=== PATIENT | male | born 1950 | race Caucasian/White ===

== ENCOUNTER 2019-12-21 15:12 | Outpatient (CLI) | payer MEDICARE, SELFPAY ==
--- NOTE | ~2019-12-21 | US_ITS ---
EXAMINATION: US thyroid EXAM DATE: 12/21/2019 15:43 INDICATION: Abnormal blood work. TECHNIQUE: Multiple grayscale and Doppler images of the thyroid were obtained (by a technologist who performed the scan) and subsequently reviewed. Individual nodules may be reported using TI-RADS syst em as designated by the 2017 ACR White Paper TI-RADS committee. There is no prior study for comparis on. FINDINGS: Right thyroid lobe measures 4.8 x 2.5 x 1.3 cm, the left measuring 4.1 x 1.9 x 1.3 cm. The isthmus is 5 mm in thickness. Mildly heterogeneous thyroid echogenicity without focal nodule. Measurements are mildly enlarged. IMPRESSION: 1. Mild thyromegaly. Reviewed, dictated and finalized at location B. ET PRESIDENT IMPRESSION: 1. Mild thyromegaly.
== END 2019-12-21 15:13 | disposition home or self-care (01) ==
LOC: ANHIMG 15:15
PROVIDERS: PCP Internal Medicine; Visit Provider Internal Medicine
DX: E01.0 Iodine-deficiency related diffuse (endemic) goiter (principal)
CPT/HCPCS: 76536

== ENCOUNTER 2020-07-04 13:00 | Outpatient (RCR) | payer MEDICARE, SELFPAY ==
[2020-04-18 13:51] VITALS: BMI 27.7
[2020-07-04 13:01] VITALS: BMI 27.7
[2020-07-04 13:02] VITALS: BMI 27.7
== END 2020-07-17 23:59 | disposition home or self-care (01) ==
LOC: ANHDMC 13:00
DX: E10.9 Type 1 diabetes mellitus without complications (principal); Z71.3 Dietary counseling and surveillance; Z71.89 Other specified counseling
CPT/HCPCS: 97802; 97803; G0108

== ENCOUNTER 2020-10-20 09:00 | Outpatient (RCR) | payer MEDICARE, SELFPAY ==
[2020-09-19 12:57] VITALS: BMI 28.5
[2020-09-19 12:59] VITALS: BMI 28.5
== END 2020-11-06 15:58 | disposition home or self-care (01) ==
LOC: ANHDMC 09:00
PROVIDERS: Visit Provider Internal Medicine Endocrinology, Diabetes & Metabolism
DX: E10.9 Type 1 diabetes mellitus without complications (principal); Z71.89 Other specified counseling; Z71.3 Dietary counseling and surveillance
CPT/HCPCS: 97803; G0108

== ENCOUNTER 2020-12-01 09:42 | Outpatient (CLI) | payer MEDICARE, SELFPAY ==
--- NOTE | ~2020-12-01 | US_ITS ---
EXAMINATION: US right upper quadrant EXAM DATE: 12/01/2020 10:20 INDICATION: Abnormal liver function test . TECHNIQUE: Multiple grayscale and Doppler images of the abdomen right upper quadrant were obtained (b y a technologist who performed the scan) and subsequently reviewed. Comparison is made to prior exami nation from 10/09/2018. FINDINGS: The pancreatic head and body are normal in appearance. The pancreatic tail is not visualized. The l iver has normal echogenicity and contour. There are no focal liver lesions identified. There is no evidence of intrahepatic biliary duct dilation. Portal venous flow was seen in the hepatopedal, nor mal direction and has normal Doppler waveform. No right-sided hydronephrosis. Right renal cyst measu ring 3 cm. Common bile duct measures 6 mm, which is normal. The gallbladder wall is normal in thickness, with ex pected amount of distention. No sonographic evidence of pericholecystic fluid. There is no cholelit hiases. Technologist performing exam reports patient did not demonstrate sonographic Nicholas's sign. Please note that this sign is less reliable in patients who have received pain medication. IMPRESSION: Unremarkable abdominal ultrasound exam. Reviewed, dictated and finalized at location A. DISTRIBUTION SYSTEM OPERATOR
== END 2020-12-01 09:43 | disposition home or self-care (01) ==
LOC: ANHIMG 09:56
PROVIDERS: PCP Internal Medicine; Visit Provider Internal Medicine
DX: R94.5 Abnormal results of liver function studies (principal)
CPT/HCPCS: 76705

== ENCOUNTER → 2023-10-23 07:04 | Outpatient (CLI) | payer MEDICARE, SELFPAY ==
--- NOTE | ~2023-10-23 | MR_ITS ---
MRI of the thoracic spine Clinical History: Radiculopathy Technique: Axial T2-weighted and gradient images, and sagittal T1-weighted, T2-weighted, and STIR maikel ges were acquired. Findings: There is no fracture or subluxation of the thoracic spine. Vertebral bodies maintain normal height and alignment. No bone marrow signal abnormality seen. There are focal central disc protrusions at T6-T7 and T7-T8, resulting in mild flattening of the vent ral cord. No other disc bulge or herniation evident. No other areas of spinal canal stenosis or cord compression. No epidural mass or collection seen. Paravertebral soft tissues are unremarkable. Impression: Central disc protrusions at T6-T7 and T7-T8, resulting in mild flattening of the ventral cord at thes e levels. Reviewed, dictated and finalized at [facility]. E LIAISON Impression: Central disc protrusions at T6-T7 and T7-T8, resulting in mild flattening of th e ventral cord at these levels.
== END ==
PROVIDERS: PCP Anesthesiology Pain Medicine; Visit Provider Anesthesiology Pain Medicine
DX: M51.24 Other intervertebral disc displacement, thoracic region (principal)
CPT/HCPCS: 72146

== ENCOUNTER 2025-05-03 08:51 | Outpatient (CLI) | payer MEDICARE, SELFPAY ==
--- NOTE | ~2025-05-03 | XR_ITS ---
XR knee LT min 4V Ordering provider: Patrick Borja, LABORATORY SECRETARY History: . Osteoarthritis of bilateral knees . Comparison: None. FINDINGS: BONES: No acute fracture or dislocation. JOINT SPACES: Narrowing of the lateral compartment. Marginal osteophytes in the patella. SOFT TISSUES: Atherosclerotic changes. IMPRESSION: No acute osseous abnormality left knee. Severe osteoarthritic changes. Reviewed, dictated and finalized at location A.
== END 2025-05-03 08:52 | disposition home or self-care (01) ==
PROVIDERS: PCP Internal Medicine; Visit Provider Nurse Practitioner Family
DX: M17.0 Bilateral primary osteoarthritis of knee (principal)
CPT/HCPCS: 73564